=== PATIENT | male | born 1985 | race American Indian/Alaskan Native ===

== ENCOUNTER 2022-05-08 07:09 | Emergency (ER) | payer OTHER, MEDICAID ==
[2022-05-08] MEDS: Proparacaine 0.5% Ophth Soln 15 ML Bottle EYERT STA (07:31)
[2022-05-08] MEDS: Tetracaine HCl/PF 0.5% 4 ML Bottle EYERT STA (07:32)
== END 2022-05-08 07:57 | disposition home or self-care (01) ==
LOC: MW.ED 07:09
DX: T15.01XA Foreign body in cornea, right eye, initial encounter (principal); R03.0 Elevated blood-pressure reading, without diagnosis of hypertension; Z88.1 Allergy status to other antibiotic agents
CPT/HCPCS: 65220; 99283